=== PATIENT | female | born 1945 | race Caucasian/White ===

== ENCOUNTER → 2018-09-21 | Day surgery (SDC) | payer MEDICARE, OTHER ==
[~2018-09-21] MED LIST: FENTANYL CITRATE/PF 100MCG/2 ML INJ ONE; LOSARTAN POTAS100 MG PO; MIDAZOLAM HCL 2 MG/2 ML VIAL ONE; OR PHACO EYE KIT ONE; PREOP PHACO EYE KIT ONE; SIMVASTATIN20 MG PO; TOPROL XL50 MG PO
--- OUTSIDE RECORDS SUMMARY | 2018-09-21 07:08 | XMS REPORT | Continuity of Care Document ---
Author Author [facility] Interface Address Unknown Phone Unavailable Problems Problem Status Onset Date Classification Date Reported Comments Source Fluid level behind tympanic membrane 07/18/2016 Diagnosis 07/18/2016 [facility] Pharyngitis Problem 07/18/2016 [facility] Medications Medication Details Route Status Patient Instructions Ordering Provider Order Date Source Losartan Potassium 50 MG Oral Tablet losartan 50 mg tablet Active [facility] Prednisone 20 MG Oral Tablet prednisone 20 mg tablet Take 2 tablets every day by oral route with meals for 5 days. Active [facility] 24 HR metoprolol succinate 50 MG Extended Release Oral Tablet [Toprol] Toprol XL 50 mg tablet,extended release Active [facility] Losartan Potassium 100 MG Oral Tablet losartan 100 mg tablet Active [facility] tizanidine 4 MG Oral Tablet tizanidine 4 mg tablet Active [facility] tramadol hydrochloride 50 MG Oral Tablet tramadol 50 mg tablet Active [facility] Azithromycin 250 MG Oral Tablet Zithromax Z-Thomas 250 mg tablet TAKE 2 TABLETS (500 MG) BY ORAL ROUTE ONCE DAILY FOR 1 DAY THEN 1 TABLET (250 MG) BY ORAL ROUTE ONCE DAILY FOR 4 DAYS Active [facility] Allergies, Adverse Reactions, Alerts Substance Category Reaction Severity Reaction type Status Date Reported Comments Source Immunizations Immunization Date Given Site Status Last Updated Comments Source influenza, unspecified formulation 02/05/2016 completed [facility] pneumococcal conjugate PCV 13 04/06/2015 completed [facility] zoster 04/06/2011 completed [facility] Results Order Name Results Value Reference Range Date Interpretation Comments Source RESULT negative 02/13/2016 [facility] SWAB LOCATION Left and Right tonsillar pillars 02/13/2016 [facility] Vital Signs Vital Sign Value Date Comments Source Diastolic (mm Hg) 78 07/18/2016 [facility] Height 66 07/18/2016 [facility] Systolic (mm Hg) 122 07/18/2016 [facility] Weight 170 07/18/2016 [facility] Diastolic (mm Hg) 76 02/13/2016 [facility] Height 66 02/13/2016 [facility] Systolic (mm Hg) 122 02/13/2016 [facility] Weight 170 02/13/2016 [facility] Encounters Location Location Details Encounter Type Encounter Number Reason For Visit Attending Provider ADM Date DC Date Status Source [place] - [facility] - [id number] Henry: [address], [place] [address], Ph. [id number] [place] 02/13/2016 [facility] [place] - [facility] - [id number] Adenike Bridges, DAY CARE HOME PROVIDER: [address], [place] [address], Ph. [id number] Adenike Bridges 07/18/2016 [facility] Procedures Procedure Code Date Perfomer Comments Source
--- OUTSIDE RECORDS SUMMARY | 2018-09-21 07:08 | XMS REPORT | Summary of Care ---
Author Author NYA DELGADO M.D. Organization Unknown Address Unknown Phone Unavailable Care Team Providers Care Locomotive Firer/Fireman Name Role Phone NYA DELGADO M.D. Unavailable Unavailable SHANA RICKETTS M.D. Unavailable Unavailable GUSTAVO GROSS M.D. Unavailable Unavailable LUKAS DEAN MD Unavailable Unavailable Unavailable Unavailable Functional Status Name Dates Details Functional status health issues are not documented Status: Name Dates Details Cognitive status health issues are not documented Status: Problems Name Dates Details Essential (primary) hypertension (401.9, I10) Status: Active Hyperlipidemia (272.4, E78.5) Status: Active Medications Name Dates Details Co Q 10 100 MG Oral Capsule qd Active Fish Oil 1000 MG Oral Capsule TAKE 1 CAPSULE DAILY. * Refills: 0 Active Vitamin C 1000 MG Oral Tablet TAKE 1 TABLET DAILY. * Refills: 0 Active Calcium 600 MG Oral Tablet TAKE 1 TABLET DAILY. * Refills: 0 Active Multivitamins TABS TAKE 1 TABLET DAILY. * Refills: 0 Active Toprol XL 50 MG Oral Tablet Extended Release 24 Hour TAKE 1 TABLET BEDTIME * Quantity: 90 Refills: 2 NYA DELGADO M.D. * Start : 21-Nov-2013 Active Losartan Potassium 50 MG Oral Tablet Take 1 tablet by mouth twice a day * Quantity: 180 Refills: 0 NYA DELGADO M.D. * Start : 21-Jun-2018 Active Nitrostat 0.4 MG Sublingual Tablet Sublingual DISSOLVE 1 TABLET UNDER THE TONGUE NEEDED FOR CHEST PAIN. * Quantity: 25 Refills: 1 GUSTAVO GROSS M.D. * Start : 19-Jan-2014 Active Simvastatin 20 MG Oral Tablet TAKE 1 TABLET AT BEDTIME * Quantity: 90 Refills: 1 SHANA RICKETTS M.D. * Start : 26-Apr-2018 Active Aspirin 81 MG Oral Tablet Delayed Release TAKE 1 TABLET BY MOUTH EVERY DAY * Quantity: 30 Refills: 0 SHANA RICKETTS M.D. * Start : 05-Aug-2017 Active Colestipol HCl - 1 GM Oral Tablet Micronized ) TAKE 2 TABLET TWICE DAILY. * Quantity: 360 Refills: 0 NYA DELGADO M.D. * Start : 09-Dec-2017 Active Allergies and Adverse Reactions Name Dates Details No Known Drug Allergies (Allergy) Status: Active Past Medical History Name Dates Details History of essential hypertension (V12.59, Z86.79) Status: Resolved History of hyperlipidemia (V12.29, Z86.39) Status: Resolved History of Intercostal pain (786.59, R07.82) Status: Resolved Procedures Procedure Dates Details History of Hysterectomy Completed History of Cholecystectomy Completed Immunization Name Dates Details Immunizations not documented Family History Name Dates Details Family history of Hypertension (V17.49) Comments: Family History Status: Active Name Dates Details Family history of Diabetes Mellitus (V18.0) Status: Active Social History Name Dates Details - Status: Name Dates Details Never smoker Vital Signs Date Test Result Details [id number] BP Systolic 133 mm[Hg] Status: Comments: Location: LUE; Position: Sitting BP Diastolic 79 mm[Hg] Status: Comments: Location: LUE; Position: Sitting Height 60 in Status: Weight 175 lb Status: Body Mass Index Calculated 34.18 kg/m2 Status: Body Surface Area Calculated 1.76 m2 Status: Heart Rate 57 /min Status: Results Date Description Value Details Results not documented Plan of Care Name Dates Details Planned Observations Planned Goals not documented Planned Encounters Appointment; NYA DELGADO M.D. On: 13-Jan-2019 9:30 Interventions Provided Plan* 1. Hypertension * - Continue Toprol 50mg daily. Continue Losartan 50mg HS --> BID w/ improved control * 2. Hyperlipidemia * - Continue cholestyramine, diet and exercise * - LDL 109 mg/dl as * - LDL 120 mg /dl as --> - up on Zocor 20 mg * - LDL 82 ,g/dl as 4.9 on Zocor 20 + colestipol * 3.DM * - 1ac 6.1% as * 4. Follow up in 6 months, regular Discussion/Summary* Clinical cardiac findings reviewed and discussed * EKG reviewed and discussed Instructions Name Dates Details Instructions not documented Encounters Appointment; NYA DELGADO M.D. Encounter Diagnosis: Problem not documented On: 19-Jan-2017 9:30 Appointment; NYA DELGADO M.D. Encounter Diagnosis: Problem not documented On: 27-Jan-2017 9:30 Appointment; NYA DELGADO M.D. Encounter Diagnosis: Problem not documented On: 05-Aug-2017 13:30 Appointment; NYA DELGADO M.D. Encounter Diagnosis: Problem not documented On: 02-Feb-2018 10:30 Appointment; NYA DELGADO M.D. Encounter Diagnosis: Problem not documented On: 04-Aug-2018 10:30
--- OUTSIDE RECORDS SUMMARY | 2018-09-21 07:08 | XMS REPORT | Encounter Summary ---
Author Organization Unknown Address [address] [place] [address] Phone [phone] Reason for Visit Medical Complaint Instructions 1. Fluid level behind tympanic membrane prednisone 20 mg tablet Discussion Note: None recorded. Patient educational handouts: No information available. Plan of Care Reminders Provider Appointments None recorded. Lab None recorded. Referral None recorded. Procedures None recorded. Surgeries None recorded. Imaging None recorded. Medications Name Start Date losartan 50 mg tablet prednisone 20 mg tablet Take 2 tablets every day by oral route with meals for 5 days. Toprol XL 50 mg tablet,extended release Medications Administered None recorded. Vitals Height Weight BMI Blood Pressure 5 ft 6 in 170 lbs 27.4 122/78 Lab Results None recorded. Allergies Code Code System Name Reaction Severity Onset NKDA Problems Name Status Onset Date Source Pharyngitis Active Encounter Procedures None recorded. Vaccine List Vaccine Type influenza, unspecified formulation 02/04/2016 pneumococcal conjugate PCV 13 04/05/2015 zoster 04/05/2011 Social History Smoking Status Never Smoker Past Encounters 07/18/2016 Fluid Level behind Tympanic Membrane Adenike Bridges, HERD TESTER: [address], [place] [address], Ph. History of Present Illness Note:70y/o female here with muffled ear to left for 2 weeks. Denies ear pain. No associated sx. Has tried claritin. Review of Systems Basic Reported By: Patient Constitutional: Constitutional: no fever Eyes: Eyes: no eye complaints Azlp-Vopj-Bdffq-Throat: Ears: difficulty hearing. Nose: no nose/sinus problems. Mouth/Throat: no sore throat, no bleeding gums, no mouth complaints, no teeth problems Cardiovascular: Cardiovascular: no chest pain, no shortness of breath, no known heart murmur Respiratory: Respiratory: no cough, no wheezing, no shortness of breath Gastrointestinal: Gastrointestinal: no abdominal pain, no vomiting / diarrhea Genitourinary: Genitourinary: no urinary complaints, no discharge Musculoskeletal: Musculoskeletal: no muscle aches, no muscle weakness, no arthralgias/joint pain, no back pain Skin: Skin: no abnormal / changing mole, no jaundice, no rashes Neurologic: Neurologic: no loss of consciousness, no weakness, no numbness, no seizures, no dizziness, no headaches Physical Exam Adult Basic, Adult Female Complete Reported By: Patient Constitutional: General Appearance: healthy-appearing, well-nourished, well-developed. Level of Distress: NAD. Ambulation: ambulating normally Psychiatric: Mental Status: active and alert. Orientation: to time, to place, to person Jgv-Sexz-Rudgo-Throat: Ears: no lesions on external ear, no outer ear tenderness, EACs clear, TMs clear, middle ear fluid. Hearing: no hearing loss. Nose: no lesions on external nose, nares patent, no septal deviation, nasal passages clear, no sinus tenderness, no nasal discharge. Lips, Teeth, and Gums: no mouth or lip ulcers, no bleeding gums, normal dentition. Oropharynx: moist mucous membranes, no erythema, no exudates, tonsils not enlarged Lungs: Respiratory effort: no dyspnea, no tachypnea, no use of accessory muscles, no intercostal retractions. Percussion: no dullness, flatness, or hyperresonance. Auscultation: breath sounds normal Cardiovascular: Heart Auscultation: RRR, no murmurs. Neck vessels: no carotid bruits. Pulses including femoral / pedal: normal throughout
--- OUTSIDE RECORDS SUMMARY | 2018-09-21 07:08 | XMS REPORT | Encounter Summary ---
Author Organization Unknown Address [address] [place] [address] Phone [phone] Reason for Visit Medical Complaint; fever x 1 day Instructions 1. Pharyngitis Zithromax Z-Thomas 250 mg tablet culture, throat rapid strep group A, throat Discussion Note: None recorded. Patient educational handouts: No information available. Plan of Care Reminders Provider Appointments None recorded. Lab Culture, Throat 02/13/2016 [facility] Rapid Strep Group a, Throat 02/13/2016 [facility] Referral None recorded. Procedures None recorded. Surgeries None recorded. Imaging None recorded. Medications Name Start Date losartan 100 mg tablet losartan 50 mg tablet tizanidine 4 mg tablet Toprol XL 50 mg tablet,extended release tramadol 50 mg tablet Zithromax Z-Thomas 250 mg tablet TAKE 2 TABLETS (500 MG) BY ORAL ROUTE ONCE DAILY FOR 1 DAY THEN 1 TABLET (250 MG) BY ORAL ROUTE ONCE DAILY FOR 4 DAYS Medications Administered None recorded. Vitals Height Weight BMI Blood Pressure 5 ft 6 in 170 lbs 27.4 122/76 Lab Results Date Name Result Description Value Range Status Rapid Strep Group a, Throat Result negative Swab Location Left and Right tonsillar pillars Allergies Name Reaction Severity Onset NKDA Problems Name Status Onset Date Source Pharyngitis Active Encounter Procedures None recorded. Vaccine List None recorded. Social History Smoking Status Never Smoker Past Encounters 02/13/2016 Pharyngitis STEVE Lozano: [address], [place] [address], Ph. History of Present Illness Throat-Oral Complaint Reported By: Patient HPI: Location: throat. Quality: sore throat. Severity: moderate. Duration: 1 days. Onset/Timing: sudden. Context: no sick contacts, no foreign travel, non-smoker. Associated Symptoms: no sputum production, no shortness of breath, no wheezing, no change in number of pillows needed to sleep at night, no sweats, no significant weight gain, no significant weight loss, no morning cough, no vomiting, no diarrhea, no rash, no nausea, sore throat Review of Systems Basic Reported By: Patient Constitutional: Constitutional: no fever Eyes: Eyes: no eye complaints Oacd-Zqgt-Mvsxu-Throat: Ears: no ear complaints. Nose: no nose/sinus problems. Mouth/Throat: no bleeding gums, no mouth complaints, no teeth problems, sore throat Cardiovascular: Cardiovascular: no chest pain, no shortness [...] Physical Exam Adult Basic, Adult Female Complete Constitutional: General Appearance: healthy-appearing, well-nourished, well-developed. Level of Distress: NAD. Ambulation: ambulating normally Psychiatric: Mental Status: active and alert. Orientation: to time, to place, to person Eyes: Pupils: PERRLA Upn-Qwdk-Iyohm-Throat: Ears: no lesions on external ear, no outer ear tenderness, EACs clear, TMs clear. Hearing: no hearing loss. Nose: no lesions on external nose, nares patent, no septal deviation, nasal passages clear, no sinus tenderness, no nasal discharge. Lips, Teeth, and Gums: no mouth or lip ulcers, no bleeding gums, normal dentition. Oropharynx: moist mucous membranes, no erythema, no exudates, tonsils enlarged 1+ Neck: Neck: supple, trachea midline. Lymph Nodes: anterior cervical LAD Lungs: Respiratory effort: no dyspnea, no tachypnea, no use of accessory muscles, no intercostal retractions. Auscultation: breath sounds normal Cardiovascular: Heart Auscultation: RRR, no murmurs. Pulses including femoral / pedal: normal throughout Musculoskeletal:: Motor Strength and Tone: normal motor strength. Joints, Bones, and Muscles: normal movement of all extremities. Extremities: no cyanosis, no edema Neurologic: Gait and Station: normal gait, normal station. Cranial Nerves: grossly intact. Sensation: grossly intact Skin: Inspection and palpation: no rash, no lesions
[2018-09-21 11:30] VITALS: BP 119/63
== END | disposition home or self-care (01) ==
LOC: OR 07:05
PROVIDERS: ATTEND Ophthalmology
DX: H25.11 Age-related nuclear cataract, right eye (principal); I10 Essential (primary) hypertension; E78.5 Hyperlipidemia, unspecified; R00.1 Bradycardia, unspecified; R73.9 Hyperglycemia, unspecified; Z01.810 Encounter for preprocedural cardiovascular examination
CPT/HCPCS: 66984; 93005; J2250; V2632

== ENCOUNTER → 2018-10-05 | Day surgery (SDC) | payer MEDICARE, OTHER ==
--- OUTSIDE RECORDS SUMMARY | 2018-10-05 07:27 | XMS REPORT | Continuity of Care Document ---
Author Author [employer] [facility] [employer] Address Unknown Phone Unavailable Care Team Providers Care Indian Blanket Weaver Name Role Phone [facility] Information [facility] Unavailable Unavailable Problems Problem Status Onset Date Classification Date Reported Comments Source Fluid level behind tympanic membrane 07/18/2016 Diagnosis 07/18/2016 [facility] Pharyngitis Problem 07/18/2016 [facility] Medications Medication Details Route Status Patient Instructions Ordering Provider Order Date Source Losartan Potassium 100 MG Oral Tablet losartan 100 mg tablet Active [facility] Losartan Potassium 50 MG Oral Tablet losartan 50 mg tablet Active [facility] tizanidine 4 MG Oral Tablet tizanidine 4 mg tablet Active [facility] 24 HR metoprolol succinate 50 MG Extended Release Oral Tablet [Toprol] Toprol XL 50 mg tablet,extended release Active [facility] tramadol hydrochloride 50 MG Oral Tablet tramadol 50 mg tablet Active [facility] Azithromycin 250 MG Oral Tablet Zithromax Z-Thomas 250 mg tablet TAKE 2 TABLETS (500 MG) BY ORAL ROUTE ONCE DAILY FOR 1 DAY THEN 1 TABLET (250 MG) BY ORAL ROUTE ONCE DAILY FOR 4 DAYS Active [facility] Prednisone 20 MG Oral Tablet prednisone 20 mg tablet Take 2 tablets every day by oral route with meals for 5 days. Active [facility] Allergies, Adverse Reactions, Alerts No Known Medication Allergies Immunizations Immunization Date Given Site Status Last Updated Comments Source influenza, unspecified formulation 02/05/2016 completed [facility] pneumococcal conjugate PCV 13 04/06/2015 completed [facility] zoster 04/06/2011 completed [facility] Results Order Name Results Value Reference Range Date Interpretation Comments Source RESULT negative 02/13/2016 [facility] SWAB LOCATION Left and Right tonsillar pillars 02/13/2016 [facility] Pathology Reports No Data Provided for This Section Diagnostic Reports No Data Provided for This Section Consultation Notes No Data Provided for This Section Discharge Summaries No Data Provided for This Section History and Physicals No Data Provided for This Section Vital Signs Vital Sign Value Date Comments [...] Date Status Source [place] - [facility] - [id number] TrevizoP: [address], [place] [address], Ph. [phone] [id number] [place] 02/13/2016 [facility] [place] - [facility] - [id number] Adenike Bridges, STEEPLE JACK: [address], [place] [address], Ph. [id number] Adenike Bridges 07/18/2016 [facility] Procedures No Data Provided for This Section Assessment and Plan No Data Provided for This Section Plan of Care No Data Provided for This Section Social History Social History Date Source Smoking Status Never Smoker 02/13/2016 [facility] Family History No Data Provided for This Section Advance Directives No Data Provided for This Section Functional Status No Data Provided for This Section
--- OUTSIDE RECORDS SUMMARY | 2018-10-05 07:28 | XMS REPORT | Summary of Care ---
Author Author Jeniffer Gray M.A. Organization Unknown Address [facility] Phone Unavailable Care Team Providers Care Tone Artist Apprentice Name Role Phone NYA DELGADO M.D. Unavailable Unavailable SHANA RICKETTS M.D. Unavailable Unavailable Jeniffer Gray M.A. Unavailable Unavailable GUSTAVO GROSS M.D. Unavailable Unavailable [...] TABLET TWICE DAILY. * Quantity: 360 Refills: 1 NYA DELGADO M.D. * Start : 09-Dec-2017 [...] smoker Vital Signs Date Test Result Details No Known Vitals to report Results Date Description Value Details Results not documented Plan of Care Name Dates Details Planned Observations Planned Goals not documented Planned Encounters Appointment; NYA DELGADO M.D. On: 13-Jan-2019 9:30 Interventions Provided Medication Changes* Colestipol HCl - 1 GM Oral Tablet - Renew Instructions Name Dates Details Instructions not documented [...]
[2018-10-05 12:00] VITALS: BP 132/53
== END | disposition home or self-care (01) ==
LOC: OR 07:14
PROVIDERS: ATTEND Ophthalmology
DX: H25.12 Age-related nuclear cataract, left eye (principal); I10 Essential (primary) hypertension; E78.5 Hyperlipidemia, unspecified; R73.9 Hyperglycemia, unspecified
CPT/HCPCS: 66984; J2250; V2632; J3010